=== PATIENT | female | born 1990 | race African-American/Black ===

== ENCOUNTER 2017-09-25 13:02 | Emergency (ER) | payer OTHER ==
[~2017-09-25] VITALS: Ht 175.3 cm; Wt 68.0 kg
[2017-09-25 13:43] VITALS: BP 120/78
--- NOTE | 2017-09-25 14:21 | ED GENERAL ADULT ---
History of Present Illness General Chief Complaint: Wheezing/Asthma Stated Complaint: ASTHMA Vital Signs & Intake/Output Vital Signs & Intake/Output Vital Signs Date Time Temp Pulse Resp B/P B/P Pulse O2 O2 Flow FiO2 Mean Ox Delivery Rate 09/25 1343 98.2 76 17 120/78 98 Room Air Room Air Allergies Coded Allergies: shellfish derived (Severe, THROAT IRRITATIONS 09/25/17) Triage Note: PT TO TRIAGE WITH SOB, COUGH, AND WHEEZING FOR 1 HOUR AFTER HER ASTHMA WAS EXACERBATED BY THE SCHOOL LAWN BEING CUT. LUNGS ARE CLEAR WITH WHEEZING SCATTERED, NO RESP DISTRESS NOTED : No Patient currently breastfeeds: No Past History Travel History Traveled to [place] past 21 day No Medical History Neurological: NONE EENT: NONE Cardiovascular: NONE Respiratory: asthma Hepatic: NONE Renal: NONE Musculoskeletal: NONE Psychiatric: NONE Endocrine: NONE Blood Disorders: NONE Cancer(s): NONE [employer] SHR[employer]/Reproductive: NONE Psychosocial History What is your primary language Slovenian Tobacco Use: Never used ETOH Use: occasional use Illicit Drug Use: denies illicit drug use Departure Departure Condition: Stable Referrals: Patient Has No Primary Care Dr (PCP/Family) Departure Forms: Customer Survey General Discharge Information
== END 2017-09-25 17:01 | disposition admitted as inpatient to this hospital (09) ==
LOC: ERH 13:02
DX: J45.909 Unspecified asthma, uncomplicated (principal)